=== PATIENT | female | born 1985 | race Caucasian/White ===

== ENCOUNTER 2020-04-13 09:39 | Emergency (ER) | payer MEDICAID ==
[~2020-04-13] VITALS: Ht 167.6 cm; Wt 150.0 kg
[~2020-04-13 09:39] MED LIST: HYDR1TAB PO; IBUP-1573 PO; METO10TA3 PO
[2020-04-13] MEDS ORDERED: HYDROcodone/acetaminophen 5mg/325mg tablet PO ONE (09:55)
[2020-04-13] MEDS ORDERED: ketorolac trometh inj. 60 MG/2 ML VIAL IM ONE (09:55)
[2020-04-13] MEDS ORDERED: CYCL-1 PO (10:44)
[2020-04-13] MEDS ORDERED: HYDR-3965 PO (10:44)
[2020-04-13] MEDS ORDERED: orphenadrine citrate 60mg/2ml inj. IM ONE (10:45)
[2020-04-13 10:54] VITALS: BP 145/57
== END 2020-04-13 10:56 | disposition home or self-care (01) ==
LOC: ER 09:39
DX: S93.491A Sprain of other ligament of right ankle, initial encounter (principal); M54.6 Pain in thoracic spine; M62.830 Muscle spasm of back; Z90.49 Acquired absence of other specified parts of digestive tract; Z79.899 Other long term (current) drug therapy; W18.39XA Other fall on same level, initial encounter; Y93.89 Activity, other specified; Y92.89 Other specified places as the place of occurrence of the external cause; Y99.8 Other external cause status
CPT/HCPCS: 71045; 72074; 73610; 96372; 99284; J1885; J2360